=== PATIENT | female | born 1970 | race Caucasian/White ===

== ENCOUNTER 2019-03-06 18:18 | Inpatient (IN) ==
[2019-03-06 20:01] LABS: Basophils # 0.1 K/mcL (0.0-0.2); Basophils % 0.3 %; Eosinophils % 0.1 %; Hematocrit 54.6 % (35.3-44.9); Hemoglobin 18.3 g/dL (11.5-15.4); Immature Granulocytes % 0.6 % (0-4); Lymphocytes # 0.7 K/mcL (0.6-4.6); Mean Corpuscular HGB Conc 33.5 g/dL (31.6-35.5); Mean Corpuscular Hemoglobin 31.2 pg (28.0-33.3); Mean Corpuscular Volume 93.2 fL (83.0-100.0); Mean Platelet Volume 10.4 fL (9.4-12.4); Monocytes # 1.2 K/mcL (0.0-1.3); Monocytes % 7.9 %; Neutrophils # 12.5 K/mcL (1.6-8.9); Platelet Count 246 K/mcL (140-400); Red Blood Count 5.86 M/mcL (3.82-4.97); Red Cell Distribution Width 13.8 % (11.5-14.5); Segmented Neutrophils % 86.1 %
[2019-03-06 20:13] LABS: BUN/Creatinine Ratio 16 (6-26); Blood Urea Nitrogen 18 mg/dL (6-20); Carbon Dioxide 25 mEq/L (23-29); Chloride 101 mEq/L (98-107); Glucose 182 mg/dL (70-105); Lipase 459 Units/L (11-82); Osmolality,Calculated 293 (280-300); Potassium 3.5 mEq/L (3.5-5.1); Sodium 138 mEq/L (136-145); eGFR For Non-African Americans 50 (> 60)
[2019-03-06] MEDS ORDERED: *HR* FentaNYL (PF) 100 MCG/2 ML VIAL IVP ONE (23:12)
[2019-03-06] MEDS ORDERED: Isovue-370 500 ML BOTTLE IVP ONE (23:12)
[2019-03-06] MEDS ORDERED: Ondansetron 4 MG/2 ML VIAL IVP ONE (23:12)
--- NOTE | 2019-03-06 23:16 | Emergency Department Note ---
Disposition Clinical Impression: Enteritis Pancreatitis Qualifiers: Chronicity: acute Pancreatitis type: unspecified pancreatitis type Acute pancreatitis complication: unspecified Qualified Code(s): K85.90 - Acute panc reatitis without necrosis or infection, unspecified Disposition: Admitted As Inpatient Condition: Good Time of Disposition: 04:06 Nausea/Vomiting/Diarrhea HPI - General Chief complaint: ED Nausea/Vomiting/Diarrhea Stated complaint: N/V x3 days Time Seen by Provider: 03/06/19 23:05 Source: patient Mode of arrival: ambulatory Limitations: no limitations Nursing Notes Reviewed: Yes Vital Signs Reviewed: Yes - History of Present Illness HPI Narrative: Alert and oriented nontoxic-appearing 48-year-old female with a history of diabetes and a cholecystectomy presents for evaluation of 3 days of gradually worsening diffuse abdominal pain, nausea, vomiting, and diarrhea. She states that she is been ill for the past week and a half however symptoms significantly worsen 3 days ago. She describes a "foamy yellow" emesis, diffuse abdominal c ramping worse after vomiting, watery diarrhea, and inability to maintain anything by mouth. She denies any known sick contacts or recent foreign travel. She denies any outright fevers but complains of subjective chills. She denies any urinary symptoms. She denies any bloody stools. She denies any hematemesis. She has taken Zofran and Bentyl at home without improvement. Pt Subjective Complaint: nausea, vomiting, diarrhea, abdominal pain Onset (ago): day(s) Description of emesis: bilious Description of Diarrhea: water Associated Abdominal Pain: Yes If pain, Location of pain: diffuse Severity: moderate Severity scale (1-10): 8 Quality: cramping Consistency: constant Improves with: nothing Worsens with: vomiting Associated symptoms: Reports: other (Chills). Denies: dysuria - Related Data Home Medications Medication Instructions Recorded Confirmed Atenolol [Tenormin] 25 mg PO DAILY 07/20/17 07/20/17 Lansoprazole [Prevacid] 30 mg PO BID 07/20/17 07/20/17 Meloxicam 15 mg PO DAILY 07/20/17 07/20/17 Sertraline [Zoloft] 100 mg PO DAILY 07/20/17 07/20/17 Varenicline [Chantix] 0.5 mg PO BID 07/20/17 07/20/17 clonazePAM [Klonopin] 0.5 mg PO DAILY 07/20/17 07/20/17 Previous Rx's Medication Instructions Recorded HYDROcodone/Acet 5/325 mg [[place] 1 tab PO Q4H PRN #15 tab 07/20/17 5-325 mg] Ibuprofen [Motrin] 600 mg PO Q6HR PRN #40 tab 07/20/17 Allergies Allergy/AdvReac Type Severity Reaction Status Date / Time adhesive AdvReac Rash Verified 05/17/16 18:40 All systems ED: reviewed and negative except as stated. Review of Systems: As Per HPI Constitutional: Denies: fever, chills, weakness, weight change Eyes: Denies: eye pain, eye discharge, vision change ENT ED: Denies: ear pain, throat pain, dental pain, hearing loss, epistaxis, congestion, dysphagia Cardiovascular: Denies: chest pain, palpitations, dyspnea on exertion, edema, syncope Respiratory: Denies: cough, dyspnea, wheezes, hemoptysis, stridor Gastrointestinal: Reports: as per HPI, abdominal pain, nausea, vomiting, diarrhea. Denies: constipation, hematemesis, melena, hematochezia Genitourinary: Denies: dysuria, frequency, hematuria, discharge Musculoskeletal: Denies: back pain, neck pain, arthralgia, myalgia Integumentary: Denies: rash, abrasion, lesions Neurological: Denies: headache, weakness, numbness, paresthesias, confusion, abnormal gait, vertigo Psychiatric: Denies: anxiety, depression, suicidal thoughts, homicidal thoughts, auditory hallucinations, visual hallucinations Endocrine: Denies: fatigue Hematological/Lymphatic: Denies: easy bleeding, easy bruising Allergic/Immunologic: Denies: facial swelling, urticaria Past Medical History - Past Medical History Attestation: Yes The following information was validated with the patient. Source: patient, nursing notes reviewed Medical history: Reports: diabetes, GERD, migraine, other Surgical history: Reports: cholecystectomy Psychiatric history: Reports: anxiety, depression - Social History Smoking Status: Current every day smoker Alcohol use: Reports: none Drug use: Reports: none Physical Exam - General General appearance: alert, in no apparent distress - Head Head exam: atraumatic, normocephalic, normal inspection - Eye Eye exam: Present: normal appearance, PERRL, EOMI. Absent: nystagmus - ENT ENT exam: mucous membranes moist - Neck Neck exam: Present: normal inspection, full ROM - Chest Chest inspection: Present: normal inspection, symmetric chest wall rise - Respiratory Respiratory exam: Present: normal lung sounds bilaterally. Absent: respiratory distress, wheezes, stridor, accessory muscle use, prolonged expiratory phase - Cardiovascular Cardiovascular exam: Present: normal rhythm, tachycardia, normal heart sounds - Abdominal Exam Abdominal exam: Present: soft, tenderness, normal bowel sounds. Absent: distention, guarding, rebound, rigidity, mass Abdominal tenderness: Present: diffuse (Worse in the epigastrium and left upper quadrant.) - Extremities Exam Extremities exam: Present: normal inspection, full ROM - Neurological Exam Neurological exam: Present: alert, oriented X3, normal gait - Psychiatric Psychiatric exam: Present: normal affect, normal mood - Skin Skin exam: Present: warm, dry, intact, normal color. Absent: rash, cyanosis, diaphoresis, pallor, mottled Course Course Narrative: I have spoken with the admitting hospitalist, Dr. Hale. Dr. Hale has had a [id number] evaluation with the patient and accepts the patient for admission to the hospital service. Vital Signs Temperature 97.9 F 03/06/19 18:32 Pulse Rate 128 03/06/19 18:32 Respiratory Rate 20 03/06/19 18:32 Blood Pressure 100/78 03/06/19 18:32 O2 Sat by Pulse Oximetry 95 03/06/19 18:32 Temperature 97.9 F 03/06/19 18:32 Pulse Rate 108 03/07/19 04:23 Respiratory Rate 18 03/07/19 04:23 Blood Pressure 123/82 03/07/19 04:23 O2 Sat by Pulse Oximetry 94 03/07/19 04:23 Oxygen Delivery Oxygen Delivery Room Air Nausea/Vomiting/Diarrhea - Medical Records Medical records reviewed: Yes I reviewed the patient's medical records. - Lab Data Lab results reviewed: Yes I reviewed the patient's lab results. Result diagrams: 03/06/19 19:42 03/06/19 19:42 Lab Results 03/06/19 03/06/19 03/06/19 Range/Units 18:40 19:27 19:42 WBC 14.5 H (4.3-11.1) K/mcL RBC 5.86 H (3.82-4.97) M/mcL Hgb 18.3 H (11.5-15.4) g/dL Hct 54.6 H (35.3-44.9) % MCV 93.2 (83.0-100.0) fL MCH 31.2 (28.0-33.3) pg MCHC 33.5 (31.6-35.5) g/dL RDW 13.8 (11.5-14.5) % Plt Count 246 (140-400) K/mcL MPV 10.4 (9.4-12.4) fL Immature Gran % 0.6 (0-4) % Seg Neutrophils % 86.1 % Lymphocytes % 5.0 % Monocytes % 7.9 % Eosinophils % 0.1 % Basophils % 0.3 % Neutrophils # 12.5 H (1.6-8.9) K/mcL Lymphocytes # 0.7 (0.6-4.6) K/mcL Monocytes # 1.2 (0.0-1.3) K/mcL Eosinophils # 0.0 (0.0-0.6) K/mcL Basophils # 0.1 (0.0-0.2) K/mcL Sodium (136-145) mEq/L Potassium (3.5-5.1) mEq/L Chloride (98-107) mEq/L Carbon Dioxide (23-29) mEq/L BUN (6-20) mg/dL Creatinine (0.60-1.20) mg/dL Est GFR ( Amer) (> 60) Est GFR (Non-Af Amer) (> 60) BUN/Creatinine Ratio (6-26) Glucose (70-105) mg/dL POC Glucose 163 H (70-99) mg/dL Calculated Osmolality (280-300) Calcium (8.6-10.3) mg/dL Lipase (11-82) Units/L Specimen Rejected Volume 03/06/19 Range/Units 19:42 WBC (4.3-11.1) K/mcL RBC (3.82-4.97) M/mcL Hgb (11.5-15.4) g/dL Hct (35.3-44.9) % MCV (83.0-100.0) fL MCH (28.0-33.3) pg MCHC (31.6-35.5) g/dL RDW (11.5-14.5) % Plt Count (140-400) K/mcL MPV (9.4-12.4) fL Immature Gran % (0-4) % Seg Neutrophils % % Lymphocytes % % Monocytes % % Eosinophils % % Basophils % % Neutrophils # (1.6-8.9) K/mcL Lymphocytes # (0.6-4.6) K/mcL Monocytes # (0.0-1.3) K/mcL Eosinophils # (0.0-0.6) K/mcL Basophils # (0.0-0.2) K/mcL Sodium 138 (136-145) mEq/L Potassium 3.5 (3.5-5.1) mEq/L Chloride 101 (98-107) mEq/L Carbon Dioxide 25 (23-29) mEq/L BUN 18 (6-20) mg/dL Creatinine 1.15 (0.60-1.20) mg/dL Est GFR ( Amer) > 60 (> 60) Est GFR (Non-Af Amer) 50 L (> 60) BUN/Creatinine Ratio 16 (6-26) Glucose 182 H (70-105) mg/dL POC Glucose (70-99) mg/dL Calculated Osmolality 293 (280-300) Calcium 10.0 (8.6-10.3) mg/dL Lipase 459 H (11-82) Units/L Specimen Rejected - Radiology Data Radiology results reviewed: Yes I reviewed the patient's radiology results.
[2019-03-07] MEDS: 0.9 % Sodium Chloride 1,000 ML IVC SCH ×3 (00:37→10:52)
[2019-03-07] MEDS ORDERED: 0.9 % Sodium Chloride 1,000 ML IVC ONE (03:50)
[2019-03-07] MEDS ORDERED: MetroNIDAZOLE 500 MG/100 ML 500 MG/100 ML BAG IVPB ONE (03:50)
--- NOTE | 2019-03-07 04:10 | Emergency Department Note ---
Disposition Clinical Impression: Enteritis Pancreatitis Qualifiers: Chronicity: acute Pancreatitis type: unspecified pancreatitis type Acute pancreatitis complication: unspecified Qualified Code(s): K85.90 - Acute panc reatitis without necrosis or infection, unspecified Disposition: Admitted As Inpatient Condition: Good Referrals: Katja Liriano MD [Primary Care Provider] - Forms: ED Satisfaction Letter General Adult HPI - General Chief complaint: ED Nausea/Vomiting/Diarrhea Stated complaint: N/V x3 days Time Seen by Provider: 03/06/19 23:05 Source: patient Mode of arrival: ambulatory Limitations: no limitations - History of Present Illness Pain Scale: 8 - Related Data Home Medications Medication Instructions Recorded Confirmed Atenolol [Tenormin] 25 mg PO DAILY 07/20/17 07/20/17 Lansoprazole [Prevacid] 30 mg PO BID 07/20/17 07/20/17 Meloxicam 15 mg PO DAILY 07/20/17 07/20/17 Sertraline [Zoloft] 100 mg PO DAILY 07/20/17 07/20/17 Varenicline [Chantix] 0.5 mg PO BID 07/20/17 07/20/17 clonazePAM [Klonopin] 0.5 mg PO DAILY 07/20/17 07/20/17 Previous Rx's Medication Instructions Recorded HYDROcodone/Acet 5/325 mg [[place] 1 tab PO Q4H PRN #15 tab 07/20/17 5-325 mg] Ibuprofen [Motrin] 600 mg PO Q6HR PRN #40 tab 07/20/17 Allergies Allergy/AdvReac Type Severity Reaction Status Date / Time adhesive AdvReac Rash Verified 05/17/16 18:40 Constitutional: Denies: fever, chills, weakness, weight change Eyes: Denies: eye pain, eye discharge, vision change ENT ED: Denies: ear pain, throat pain, dental pain, hearing loss, epistaxis, congestion, dysphagia Cardiovascular: Denies: chest pain, palpitations, dyspnea on exertion, edema, syncope Respiratory: Denies: cough, dyspnea, wheezes, hemoptysis, stridor Gastrointestinal: Reports: as per HPI, abdominal pain, nausea, vomiting, diarrhea. Denies: constipation, hematemesis, melena, hematochezia Genitourinary: Denies: dysuria, frequency, hematuria, discharge Musculoskeletal: Denies: back pain, neck pain, arthralgia, myalgia Integumentary: Denies: rash, abrasion, lesions Neurological: Denies: headache, weakness, numbness, paresthesias, confusion, abnormal gait, vertigo Psychiatric: Denies: anxiety, depression, suicidal thoughts, homicidal thoughts, auditory hallucinations, visual hallucinations Endocrine: Denies: fatigue Hematological/Lymphatic: Denies: easy bleeding, easy bruising Allergic/Immunologic: Denies: facial swelling, urticaria Past Medical History - Past Medical History Medical history: Reports: diabetes, GERD, migraine, other Surgical history: Reports: cholecystectomy Psychiatric history: Reports: anxiety, depression - Social History Smoking Status: Current every day smoker Alcohol use: Reports: none Drug use: Reports: none Physical Exam - General Limitations: no limitations General appearance: alert, in no apparent distress Course Vital Signs Temperature 97.9 F 03/06/19 18:32 Pulse Rate 128 03/06/19 18:32 Respiratory Rate 20 03/06/19 18:32 Blood Pressure 100/78 03/06/19 18:32 O2 Sat by Pulse Oximetry 95 03/06/19 18:32 Temperature 97.9 F 03/06/19 18:32 Pulse Rate 127 03/06/19 19:48 Respiratory Rate 20 03/06/19 19:48 Blood Pressure 135/84 03/06/19 19:48 O2 Sat by Pulse Oximetry 97 03/06/19 19:48 Oxygen Delivery Oxygen Delivery Room Air Medical Decision Making - Lab Data Result diagrams: 03/06/19 19:42 03/06/19 19:42 Lab Results 03/06/19 03/06/19 03/06/19 Range/Units 18:40 19:27 19:42 WBC 14.5 H (4.3-11.1) K/mcL RBC 5.86 H (3.82-4.97) M/mcL Hgb 18.3 H (11.5-15.4) g/dL Hct 54.6 H (35.3-44.9) % MCV 93.2 (83.0-100.0) fL MCH 31.2 (28.0-33.3) pg MCHC 33.5 (31.6-35.5) g/dL RDW 13.8 (11.5-14.5) % Plt Count 246 (140-400) K/mcL MPV 10.4 (9.4-12.4) fL Immature Gran % 0.6 (0-4) % Seg Neutrophils % 86.1 % Lymphocytes % 5.0 % Monocytes % 7.9 % Eosinophils % 0.1 % Basophils % 0.3 % Neutrophils # 12.5 H (1.6-8.9) K/mcL Lymphocytes # 0.7 (0.6-4.6) K/mcL Monocytes # 1.2 (0.0-1.3) K/mcL Eosinophils # 0.0 (0.0-0.6) K/mcL Basophils # 0.1 (0.0-0.2) K/mcL Sodium (136-145) mEq/L Potassium (3.5-5.1) mEq/L Chloride (98-107) mEq/L Carbon Dioxide (23-29) mEq/L BUN (6-20) mg/dL Creatinine (0.60-1.20) mg/dL Est GFR ( Amer) (> 60) Est GFR (Non-Af Amer) (> 60) BUN/Creatinine Ratio (6-26) Glucose (70-105) mg/dL POC Glucose 163 H (70-99) mg/dL Calculated Osmolality (280-300) Calcium (8.6-10.3) mg/dL Lipase (11-82) Units/L Specimen Rejected Volume 03/06/19 Range/Units 19:42 WBC (4.3-11.1) K/mcL RBC (3.82-4.97) M/mcL Hgb (11.5-15.4) g/dL Hct (35.3-44.9) % MCV (83.0-100.0) fL MCH (28.0-33.3) pg MCHC (31.6-35.5) g/dL RDW (11.5-14.5) % Plt Count (140-400) K/mcL MPV (9.4-12.4) fL Immature Gran % (0-4) % Seg Neutrophils % % Lymphocytes % % Monocytes % % Eosinophils % % Basophils % % Neutrophils # (1.6-8.9) K/mcL Lymphocytes # (0.6-4.6) K/mcL Monocytes # (0.0-1.3) K/mcL Eosinophils # (0.0-0.6) K/mcL Basophils # (0.0-0.2) K/mcL Sodium 138 (136-145) mEq/L Potassium 3.5 (3.5-5.1) mEq/L Chloride 101 (98-107) mEq/L Carbon Dioxide 25 (23-29) mEq/L BUN 18 (6-20) mg/dL Creatinine 1.15 (0.60-1.20) mg/dL Est GFR ( Amer) > 60 (> 60) Est GFR (Non-Af Amer) 50 L (> 60) BUN/Creatinine Ratio 16 (6-26) Glucose 182 H (70-105) mg/dL POC Glucose (70-99) mg/dL Calculated Osmolality 293 (280-300) Calcium 10.0 (8.6-10.3) mg/dL Lipase 459 H (11-82) Units/L Specimen Rejected Attestation Statement - Attestation Attestation: I examined this patient and my medical decision-making was reviewed with the Resident Physician. I agree with the documented findings, disposition and treatment plan as described except to the extent set forth below. 48 year old female presents to the ED with complaints of epigastric pain and n/v with diarrhea which is watery and brown without recent hospitaliszation or recent antibotic use. Patinet appears to have diarrhea illiness on CT scan and likley entrities and elevated WBC and elevated lipase we will admit steven edicine for pancreaitis and enteritis.
[2019-03-07] MEDS ORDERED: Ondansetron 4 MG/2 ML VIAL IVP ONE (04:39)
[2019-03-07] MEDS ORDERED: *HR* FentaNYL (PF) 100 MCG/2 ML VIAL IVP ONE (04:39)
[2019-03-07 06:25] LABS: Albumin 4.1 g/dL (3.5-5.7); Albumin/Globulin Ratio 1.5 (1.1-2.2); Bilirubin,Indirect 0.4 mg/dL (0.0-1.2); Bilirubin,Total 0.4 mg/dL (0.3-1.0); Globulin 2.7 g/dL (2.4-3.5); Total Protein 6.8 g/dL (6.4-8.9)
[2019-03-07 06:41] LABS: Bilirubin,Urine Negative (Negative); Blood,Urine Trace (Negative); Clarity,Urine Clear (Clear); Color,Urine Yellow (Yellow); Glucose,Urine (UA) Normal (Normal); Ketones,Urine Trace mg/dL (Negative); Leukocyte Esterase,Urine Negative (Negative); Nitrite,Urine Negative (Negative); PH,Urine 5.5 pH Units (5.0-8.0); Protein,Urine 30 mg/dL (Neg-Trace); Specific Gravity,Urine > 1.030 (1.010-1.025); Urobilinogen,Urine Normal (Normal)
[2019-03-07 06:44] LABS: Bacteria,Urine Few per hpf (None-Few); Hyaline Casts,Urine Few per lpf (None-Few); Squamous Epithelial Cell,Urine Many per lpf (None-Few)
[2019-03-07 06:55] LABS: RBC,Urine 0-3 per hpf (0-3)
[2019-03-07] MEDS ORDERED: Naloxone 0.4 MG/ML INJ IVP PRN (08:22)
[2019-03-07] MEDS ORDERED: tiZANidine 4 MG TABLET PO PRN (09:32)
[2019-03-07] MEDS ORDERED: *HR* Dextrose 50 % in Water (Syg) 50 ML SYRINGE IVP PRN (09:33)
[2019-03-07] MEDS ORDERED: Dextrose Gel 15 GM/37.5 ML TUBE PO PRN ×2 (09:33)
[2019-03-07] MEDS ORDERED: D5% in Water 1,000 ML IVC PRN (09:33)
--- NOTE | 2019-03-07 09:37 | Internal Med History&Physical ---
Date of Encounter: 03/07/19 Time of Encounter: 09:15 Internal Medicine - H&P: HPI Chief complaint: abdominal pain, nausea, vomiting Admitted From: Home Plans for Post Hospital Care: Home History of present illness: Ms. Augustin is a 48 year old female with PMH of hypothyroidism, anxiety, diabetes mellitus, migraine headaches, tobacco abuse, and morbid obesity who presented to the ER for evaluation of persistent abdominal pain, nausea, and vomiting x 3 days. Pt states she started feeling ill with nausea and vomiting ab out 10 days ago but for the last three days, her symptoms have worsened to a point, she is not able to even drink water due to severe nausea. Reports of loose BM for the last three days. Reports of diffuse abdominal pain which has improved since her hospitalization. Denies any ill contacts or any travel history. Denies any headache, chest pain, sob, fever, or chills. At this time, she reports of being thirsty but not hungry. Social hx: Denies alcohol use, Reports of being an everyday smoker: 1 ppd Fam Hx: Heart disease in both parents Ten point ROS is negative except as listed above Past Med Surg Social Fam HX - Past Medical History Medical history: arthritis, diabetes, GERD, migraine Additional medical history: cholitis Psychiatric history: anxiety, depression - Past Surgical History Surgical History: cholecystectomy, other Additional surgical history: left wrist cyst, right knee scope, left plantar fascitis - Social History Smoking Status: Current every day smoker Packs per day: 1 Alcohol use: none Drug use: none - Family History Father Living Status: Still Living Hx Family Endocrine Disorder: Yes (DM, dialysis) Mother Living Status: Still Living Hx Family Endocrine Disorder: Yes (DM) Internal Medicine - H&P: Meds Atenolol [Tenormin] 25 mg PO DAILY 07/20/17 [History] Lansoprazole [Prevacid] 30 mg PO BID 07/20/17 [History] Meloxicam 15 mg PO DAILY 07/20/17 [History] Budesonide [Entocort EC] 6 mg PO QAM 03/07/19 [History] Bupropion HCl [Wellbutrin Xl] 300 mg PO QAM 03/07/19 [History] Lactobacillus Combo No.10 [Probiotic] 1 cap PO BID 03/07/19 [History] Levothyroxine Sodium [Levo-T] 125 mcg PO QAM 03/07/19 [History] Metformin HCl [Glumetza] 500 mg PO BID 03/07/19 [History] Psyllium Husk [Fiber] 0.52 gm PO BID 03/07/19 [History] Tizanidine HCl 2 mg PO TID PRN 03/07/19 [History] Varenicline Tartrate [Chantix] 0.5 mg PO BID 03/07/19 [History] Allergy/AdvReac Type Severity Reaction Status Date / Time adhesive AdvReac "ITCHING, Verified 03/07/19 08:57 WELTS" All Systems PM: A 10-system review of systems was performed and is negative for pertinent findings except as documented above in the HPI. Review of systems: Ten point ROS is negative except as listed in the HPI - Constitutional Vitals: Temp Pulse Resp BP Pulse Ox 98.7 F 110 18 131/84 95 03/07/19 07:06 03/07/19 07:06 03/07/19 07:06 03/07/19 07:06 03/07/19 07:06 Exam: General: No acute distress, AAO x 3, morbidly obese HEENT: EOMI, PERRLA, NC/AT, no scleral icterus Respiratory: Clear to auscultate bilaterally, no wheezing, no rales Cardiovascular: Regular, Rate, Rhythm, No murmurs GI: Soft, Non tender, non distended, normal bowel sounds Ext: No edema, no tenderness, positive pulses Neuro: AAO x 3, no focal deficits Internal Med - H&P Results - Labs CBC & Chem 7: 03/06/19 19:42 03/06/19 19:42 Labs: Short CBC 03/06/19 Range/Units 19:42 WBC 14.5 H (4.3-11.1) K/mcL Hgb 18.3 H (11.5-15.4) g/dL Hct 54.6 H (35.3-44.9) % Plt Count 246 (140-400) K/mcL Neutrophils # 12.5 H (1.6-8.9) K/mcL BMP 03/06/19 19:42 Sodium 138 Potassium 3.5 Chloride 101 Carbon Dioxide 25 BUN 18 Creatinine 1.15 Glucose 182 H Calcium 10.0 Liver Function 03/07/19 Range/Units 05:50 Total Bilirubin 0.4 (0.3-1.0) mg/dL Direct Bilirubin 0.0 (0.0-0.2) mg/dL AST 22 (13-39) Units/L ALT 24 (7-52) Units/L Alkaline Phosphatase 74 (34-104) Units/L Albumin 4.1 (3.5-5.7) g/dL Urine 03/07/19 Range/Units 06:18 Urine Color Yellow (Yellow) Urine Clarity Clear (Clear) Urine pH 5.5 (5.0-8.0) pH Units Ur Specific [place] > 1.030 H (1.010-1.025) Urine Protein 30 H (Neg-Trace) mg/dL Urine Glucose (UA) Normal (Normal) mg/dL - Impressions ITS Impressions Abdomen/Pelvis CT 03/07/19 00:10 IMPRESSION: 1. Fluid distention of multiple small bowel loops, some of which are mildly distended. The findings suggest mild enteritis. 2. Liquid stool throughout much of the colon, suggesting associated diarrhea. D/ / George Victoria MD / George Victoria MD Interpreting Provider: George Victoria MD - Summary of Assessment and Plan Summary of Assessment and Plan: Patient is a 48y/o female with PMH of hypothyroidism, anxiety, diabetes mellitus, migraine headaches, tobacco abuse, and morbid obesity who is being admitted for management of abdominal pain/nausea/vomiting/diarrhea. 1. Abdominal pain/N/V/Diarrhea secondary to Enteritis continue IV fluids Cipro and Flagyl anti-emetic support and pain control as needed will closely monitor electrolytes (awaiting labs) clear liquid diet no imagining findings consistent with pancreatits C-diff negative, continue supportive care for diarrhea 2. Tobacco Abuse smoking cessation counseling provided pt reports she is on Chantix and is trying to quit refused nicotine supplementation therapy 3. DM hold oral antihyperglycemic agents sliding scale insulin algorithm monitor FS and BG 4. DVT ppx: Heparin SQ Co-morbidities: Migraine headache, anxiety, hypothyroidism, GERD restarted home medications Care plan discussed with patient/RN LOS <2 midnights - Time Spent With Patient Total time spent is greater than 50% in coordination of care (as documented) at patient's floor/unit and/or counseling patient: 25 - 35 minutes
[2019-03-07 09:56] LABS: Alanine Aminotransferase 25 Units/L (7-52); Albumin 3.9 g/dL (3.5-5.7); Albumin/Globulin Ratio 1.4 (1.1-2.2); Alkaline Phosphatase 69 Units/L (34-104); Aspartate Amino Transferase 23 Units/L (13-39); BUN/Creatinine Ratio 20 (6-26); Bilirubin,Total 0.3 mg/dL (0.3-1.0); Blood Urea Nitrogen 19 mg/dL (6-20); Calcium 8.8 mg/dL (8.6-10.3); Carbon Dioxide 23 mEq/L (23-29); Chloride 105 mEq/L (98-107); Globulin 2.8 g/dL (2.4-3.5); Glucose 111 mg/dL (70-105); Magnesium 1.6 mg/dL (1.6-2.6); Osmolality,Calculated 289 (280-300); Phosphorous 2.7 mg/dL (2.7-4.5); Potassium 3.3 mEq/L (3.5-5.1); Sodium 138 mEq/L (136-145); Total Protein 6.7 g/dL (6.4-8.9); eGFR For Non-African Americans > 60 (> 60)
[2019-03-07] MEDS: BuPROPion XL (24 HR) 150 MG TABLET PO SCH (10:51)
[2019-03-07] MEDS: Lactobacillus 1 EACH CAP.SPRINK PO SCH ×2 (10:51→19:57)
[2019-03-07] MEDS: Budesonide [Entocort Ec] 6 MG PO SCH (10:52)
[2019-03-07 10:55] LABS: Estimated Average Glucose 148 mg/dl; Hemoglobin A1C 6.8 %
[2019-03-07] MEDS: Ondansetron 4 MG/2 ML VIAL IVP PRN ×2 (10:59→19:59)
[2019-03-07] MEDS: Insulin LISPRO 300 UNITS/3 ML VIAL SQ SCH ×2 (12:41→16:55)
[2019-03-07] MEDS ORDERED: Potassium Chloride 20 MEQ, Lidocaine 1% 2 ML in D5% in Water 250 ML IVPB ONE (15:26)
[2019-03-07] MEDS: MetroNIDAZOLE 500 MG/100 ML 500 MG/100 ML BAG IVPB SCH (15:43)
[2019-03-07] MEDS: OXYCODONE Oral CONC 10 MG/0.5 ML ORAL.SYG SL PRN ×2 (15:44→19:56)
[2019-03-07] MEDS ORDERED: *HR* Promethazine 25 MG/ML VIAL IVP PRN (15:51)
[2019-03-07] MEDS: *HR* Heparin 5,000 UNIT/ML VIAL SQ SCH (16:51)
[2019-03-08] MEDS: MetroNIDAZOLE 500 MG/100 ML 500 MG/100 ML BAG IVPB SCH ×3 (00:01→18:15)
[2019-03-08] MEDS: Insulin LISPRO 300 UNITS/3 ML VIAL SQ SCH ×4 (01:15→18:08)
[2019-03-08 04:02] LABS: Basophils % 0.2 %; Eosinophils % 0.4 %; Hematocrit 46.3 % (35.3-44.9); Immature Granulocytes % 0.2 % (0-4); Lymphocytes # 2.1 K/mcL (0.6-4.6); Lymphocytes % 26.2 %; Mean Corpuscular HGB Conc 33.5 g/dL (31.6-35.5); Mean Corpuscular Hemoglobin 31.4 pg (28.0-33.3); Mean Corpuscular Volume 93.9 fL (83.0-100.0); Mean Platelet Volume 10.2 fL (9.4-12.4); Monocytes # 1.1 K/mcL (0.0-1.3); Monocytes % 13.2 %; Neutrophils # 4.8 K/mcL (1.6-8.9); Platelet Count 157 K/mcL (140-400); Red Blood Count 4.93 M/mcL (3.82-4.97); Red Cell Distribution Width 13.9 % (11.5-14.5); Segmented Neutrophils % 59.8 %
[2019-03-08] MEDS ORDERED: 0.9 % Sodium Chloride 1,000 ML ONE (04:03)
[2019-03-08] MEDS: 0.9 % Sodium Chloride 1,000 ML IVC SCH ×2 (04:05→18:16)
[2019-03-08 04:20] LABS: Hemoglobin 15.5 g/dL (11.5-15.4)
[2019-03-08 04:25] LABS: BUN/Creatinine Ratio 17 (6-26); Blood Urea Nitrogen 13 mg/dL (6-20); Calcium 8.4 mg/dL (8.6-10.3); Carbon Dioxide 24 mEq/L (23-29); Chloride 107 mEq/L (98-107); Glucose 86 mg/dL (70-105); Lipase 24 Units/L (11-82); Magnesium 1.6 mg/dL (1.6-2.6); Osmolality,Calculated 291 (280-300); Phosphorous 2.4 mg/dL (2.7-4.5); Potassium 3.5 mEq/L (3.5-5.1); Sodium 141 mEq/L (136-145); eGFR For Non-African Americans > 60 (> 60)
[2019-03-08] MEDS: *HR* Heparin 5,000 UNIT/ML VIAL SQ SCH ×2 (05:08→18:19)
[2019-03-08] MEDS: Lactobacillus 1 EACH CAP.SPRINK PO SCH ×2 (08:01→22:49)
[2019-03-08] MEDS: BuPROPion XL (24 HR) 150 MG TABLET PO SCH (08:01)
[2019-03-08] MEDS: Budesonide [Entocort Ec] 6 MG PO SCH (08:02)
[2019-03-08] MEDS: Ondansetron 4 MG/2 ML VIAL IVP PRN ×2 (09:20→20:04)
--- NOTE | 2019-03-08 10:16 | Internal Med Progress Note ---
Hospitalist Progress Note - Encounter Date of Encounter: 03/08/19 Time of Encounter: 10:14 - Subjective Interval History: Patient seen and examined earlier this morning. States she was starting to feel better until she had the jello this morning and started feeling nauseous with diffuse abdominal cramping. She reports of tolerating clear liquid diet without any discomfort last night. Denies any recurrent episodes of vomiting. States her diarrhea is improving as well. Ten point ROS is negative except as listed above. No overnight events reported - Exam Vitals: Temp Pulse Resp BP Pulse Ox 99.2 F 89 20 131/81 96 03/08/19 07:49 03/08/19 07:49 03/08/19 07:49 03/08/19 07:49 03/08/19 07:49 Exam: General: No acute distress, AAO x 3, morbidly obese HEENT: EOMI, PERRLA, NC/AT, no scleral icterus Respiratory: Clear to auscultate bilaterally, no wheezing, no rales Cardiovascular: Regular, Rate, Rhythm, No murmurs GI: Soft, Non tender, non distended, normal bowel sounds Ext: No edema, no tenderness, positive pulses Neuro: AAO x 3, no focal deficits - Summary of Assessment and Plan Summary of Assessment and Plan: Patient is a 48y/o female with PMH of hypothyroidism, anxiety, diabetes mellitus, migraine headaches, tobacco abuse, and morbid obesity who is being admitted for management of abdominal pain/nausea/vomiting/diarrhea. 1. Abdominal pain/N/V/Diarrhea secondary to Enteritis continue IV fluids Cipro and Flagyl anti-emetic support and pain control as needed hypophosphatemia: phos supplemented clear liquid diet no imagining findings consistent with pancreatits C-diff negative, continue supportive care for diarrhea 2. Tobacco Abuse smoking cessation counseling provided pt reports she is on Chantix and is trying to quit refused nicotine supplementation therapy 3. DM hold oral antihyperglycemic agents sliding scale insulin algorithm monitor FS and BG 4. DVT ppx: Heparin SQ Pt encouraged to get out of bed to chair and increase activity as tolerated Co-morbidities: Migraine headache, anxiety, hypothyroidism, GERD continue home medications tentative d/c in am if clinically stable Care plan discussed with patient/RN - Time Spent with Patient Total time spent is greater than 50% in coordination of care (as documented) at patient's floor/unit and/or counseling patient: 25 - 35 minutes Internal Medicine: Result - Labs CBC & Chem 7: 03/08/19 03:47 03/08/19 03:47 Labs: Short CBC 03/08/19 Range/Units 03:47 WBC 8.1 (4.3-11.1) K/mcL Hgb 15.5 H D (11.5-15.4) g/dL Hct 46.3 H (35.3-44.9) % Plt Count 157 (140-400) K/mcL Neutrophils # 4.8 (1.6-8.9) K/mcL BMP 03/08/19 03:47 Sodium 141 Potassium 3.5 Chloride 107 Carbon Dioxide 24 BUN 13 Creatinine 0.78 Glucose 86 Calcium 8.4 L Consult Discharge Plan - Plan Referrals: Katja Liriano MD [Primary Care Provider] -
[2019-03-08] MEDS: OXYCODONE Oral CONC 10 MG/0.5 ML ORAL.SYG SL PRN ×2 (11:55→20:05)
[2019-03-08] MEDS ORDERED: *HR* Promethazine 25 MG/ML VIAL IVP ONE (23:38)
[2019-03-08] MEDS ORDERED: Acetaminophen 325 MG TABLET PO PRN (23:39)
[2019-03-09] MEDS: 0.9 % Sodium Chloride 1,000 ML IVC SCH ×2 (00:04→05:28)
[2019-03-09] MEDS: Insulin LISPRO 300 UNITS/3 ML VIAL SQ SCH ×2 (00:29→05:28)
[2019-03-09 05:22] LABS: Basophils % 0.4 %; Eosinophils # 0.1 K/mcL (0.0-0.6); Eosinophils % 0.9 %; Hematocrit 44.3 % (35.3-44.9); Hemoglobin 14.9 g/dL (11.5-15.4); Immature Granulocytes % 0.3 % (0-4); Lymphocytes # 2.2 K/mcL (0.6-4.6); Mean Corpuscular HGB Conc 33.6 g/dL (31.6-35.5); Mean Corpuscular Hemoglobin 31.7 pg (28.0-33.3); Mean Corpuscular Volume 94.3 fL (83.0-100.0); Mean Platelet Volume 10.5 fL (9.4-12.4); Monocytes # 0.9 K/mcL (0.0-1.3); Monocytes % 13.3 %; Neutrophils # 3.7 K/mcL (1.6-8.9); Platelet Count 146 K/mcL (140-400); Red Cell Distribution Width 13.6 % (11.5-14.5); Segmented Neutrophils % 53.1 %
[2019-03-09 05:29] LABS: BUN/Creatinine Ratio 11 (6-26); Blood Urea Nitrogen 8 mg/dL (6-20); Calcium 8.4 mg/dL (8.6-10.3); Carbon Dioxide 25 mEq/L (23-29); Chloride 107 mEq/L (98-107); Glucose 98 mg/dL (70-105); Magnesium 1.5 mg/dL (1.6-2.6); Osmolality,Calculated 290 (280-300); Phosphorous 3.1 mg/dL (2.7-4.5); Sodium 141 mEq/L (136-145); eGFR For Non-African Americans > 60 (> 60)
[2019-03-09] MEDS: *HR* Heparin 5,000 UNIT/ML VIAL SQ SCH (05:29)
[2019-03-09] MEDS: BuPROPion XL (24 HR) 150 MG TABLET PO SCH (08:22)
[2019-03-09] MEDS: MetroNIDAZOLE 500 MG/100 ML 500 MG/100 ML BAG IVPB SCH ×2 (08:23)
[2019-03-09] MEDS: Ondansetron 4 MG/2 ML VIAL IVP PRN (08:23)
[2019-03-09] MEDS: Lactobacillus 1 EACH CAP.SPRINK PO SCH (08:23)
[2019-03-09] MEDS: Budesonide [Entocort Ec] 6 MG PO SCH (08:24)
[2019-03-09 09:54] VITALS: BP 136/68
[2019-03-09] MEDS ORDERED: Magnesium Oxide 400 MG TABLET PO ONE (09:56)
--- NOTE | 2019-03-09 11:13 | Discharge Summary ---
- NOTES TO OUTPATIENT PROVIDER Notes to Outpatient Provider: Pt was admitted for diffuse abdominal pain secondary to enteritis. Pt is being discharged with oral antibiotics. Orders not resulted at time of discharge: Pending orders 03/07/19 05:40 Culture,Blood [BC] Stat Date of Encounter: 03/09/19 Time of Encounter: 11:11 - Discharge Diagnosis (1) Enteritis Priority: Primary Status: Acute (2) Hypokalemia Priority: Secondary Status: Acute Assessment and Plan: K supplemented (3) Hypomagnesemia Priority: Secondary Status: Acute Assessment and Plan: Mg supplemented Hospital course: Ms. Augustin is a 48 year old female with PMH of hypothyroidism, anxiety, diabetes mellitus, migraine headaches, tobacco abuse, and morbid obesity who was admitted for abdominal pain/n/v/diarrhea secondary to enteritis. Pt was started on IV fluids, IV abx to which she responded appropriately. Nausea improved with complete resolution of vomiting and abd pain. Reports of being able to tolerate fluids. Cdiff studies were negative. Diarrhea improved. Pt noted to have hypokalemia and hypomagnesemia today which has been supplemented. Pt reports significant improvement since her hospitalization. She is currently medically stable for discharge to home with outpatient follow up with PCP. Pt demonstrates understanding of her diagnosis and agrees with the discharge car e and plan. All questions were answered Discharge discussed with: patient, nurse, case management - Time Spent with Patient Total time spent providing and/or coordinating discharge services: 25 minutes Time spent: Less than 30 minutes - Discharge Medications Prescriptions: New Ciprofloxacin [Cipro] 500 mg PO BID #9 tablet metroNIDAZOLE [Flagyl] 500 mg PO TID #15 tablet Ondansetron ODT [Zofran ODT] 4 mg SL Q6HR #5 tab.rapdis Continue Atenolol [Tenormin] 25 mg PO DAILY Meloxicam 15 mg PO DAILY Lansoprazole [Prevacid] 30 mg PO BID Budesonide [Entocort EC] 6 mg PO QAM Bupropion HCl [Wellbutrin Xl] 300 mg PO QAM Levothyroxine Sodium [Levo-T] 125 mcg PO QAM Metformin HCl [Glumetza] 500 mg PO BID Tizanidine HCl 2 mg PO TID PRN PRN Reason: Muscle Spasm Varenicline Tartrate [Chantix] 0.5 mg PO BID Psyllium Husk [Fiber] 0.52 gm PO BID Lactobacillus Combo No.10 [Probiotic] 1 cap PO BID Home Medications: Atenolol [Tenormin] 25 mg PO DAILY 07/20/17 [History] Lansoprazole [Prevacid] 30 mg PO BID 07/20/17 [History] Meloxicam 15 mg PO DAILY 07/20/17 [History] Budesonide [Entocort EC] 6 mg PO QAM 03/07/19 [History] Bupropion HCl [Wellbutrin Xl] 300 mg PO QAM 03/07/19 [History] Lactobacillus Combo No.10 [Probiotic] 1 cap PO BID 03/07/19 [History] Levothyroxine Sodium [Levo-T] 125 mcg PO QAM 03/07/19 [History] Metformin HCl [Glumetza] 500 mg PO BID 03/07/19 [History] Psyllium Husk [Fiber] 0.52 gm PO BID 03/07/19 [History] Tizanidine HCl 2 mg PO TID PRN 03/07/19 [History] Varenicline Tartrate [Chantix] 0.5 mg PO BID 03/07/19 [History] Ciprofloxacin [Cipro] 500 mg PO BID #9 tablet 03/09/19 [Rx] Ondansetron ODT [Zofran ODT] 4 mg SL Q6HR #5 tab.rapdis 03/09/19 [Rx] metroNIDAZOLE [Flagyl] 500 mg PO TID #15 tablet 03/09/19 [Rx] Allergies/Adverse Reactions: Allergy/AdvReac Type Severity Reaction Status Date / Time adhesive AdvReac "ITCHING, Verified 03/07/19 08:57 WELTS" Date of admission: 03/08/19 10:13 Primary care physician: Katja Liriano MD Discharging clinician: Nidia Diallo Anticipated date of discharge: 03/09/19 - Constitutional Vitals: Temp Pulse Resp BP Pulse Ox 98.6 F 71 16 136/68 93 03/09/19 06:29 03/09/19 09:53 03/09/19 09:53 03/09/19 09:53 03/09/19 09:53 Exam: General: No acute distress, AAO x 3, morbidly obese HEENT: EOMI, PERRLA, NC/AT, no scleral icterus Respiratory: Clear to auscultate bilaterally, no wheezing, no rales Cardiovascular: Regular, Rate, Rhythm, No murmurs GI: Soft, Non tender, non distended, normal bowel sounds Ext: No edema, no tenderness, positive pulses Neuro: AAO x 3, no focal deficits - Patient Status Disposition: Home, Self-Care Condition: Good Functional capacity at discharge: independent ambulation Overall status at discharge: patient is back to baseline - Discharge Instructions Follow Up With: Kataj Liriano MD [Primary Care Provider] - 03/16/19 3:30 pm Additional Instructions: 1. Please follow up with your primary care physician within five days after your discharge from the hospital. 2. Please continue oral antibiotics as prescribed. 3. Please continue all your other home medications as prescribed by your primary care physician. - Diet and Activity Activity: resume usual activities as tolerated Diet: other (slowly advance diet as tolerated )
== END 2019-03-09 12:58 | disposition home or self-care (01) | DRG 249 ==
LOC: 3BNU 18:18 → EMEROOARM 18:18 → SUATTDRO 03-07 04:43 → 3BNU 03-07 06:21
PROVIDERS: ADMIT Family Medicine; ATTEND Internal Medicine